=== PATIENT | female | born 1960 | race Caucasian/White ===

== ENCOUNTER 2023-09-30 18:02 | Outpatient (REF) | payer OTHER, SELFPAY ==
--- NOTE | 2023-09-30 14:15 | ORMUBX_PTH ---
PATIENT: Marnie Haque LOC: [facility] U#:[id number] AGE/SX: 62/F ROOM: RE09/30/[address]: Cameron Ren MD : 1960 BED: DIS: 09/30/2023 SPEC #: [id number] RECD: 09/30/23 18:08 STATUS: ZONIA REQ #: [id number] ISHMAEL: 09/30/23 14:[address]: Cameron Ren DEPT: Surgical Specimen RECD BY: eTri Cantu ENTERED: 09/30/23 18:09 SP TYPE: ORMUBX OTHR DR: Unknown,Unknown Tissues: 1 - MUCOSA, NOS Procedures: GROSS AND MICRO LEVEL 4 Comments: [id number]
== END 2023-09-30 18:03 | disposition home or self-care (01) ==
LOC: LBN 18:02
PROVIDERS: Visit Provider Otolaryngology
DX: K13.79 Other lesions of oral mucosa (principal)
CPT/HCPCS: 88305